=== PATIENT | female | born 1965 | race Caucasian/White ===

== ENCOUNTER 2016-11-15 08:02 | Day surgery (SDC) | payer MEDICAID ==
[2016-11-15] VITALS (9 sets, daily range): BP systolic 141–190; BP diastolic 69–88; PULSE 73–88; TEMP 97.3–98
[~2016-11-15] VITALS: Ht 161.9 cm; Wt 142.5 kg
[2016-11-15 08:58] LABS: HEMATOCRIT 40.9 % (37.0-47.0); HEMOGLOBIN 13.9 g/dl (12.5-16.0); MEAN CELL VOLUME 82 fl (80.0-100.0); MEAN CORPUSCULAR HEMOGLOBIN 28 pg (27.0-31.0); MEAN CORPUSCULAR HGB CONC 34 g/dl (33.0-37.0); MEAN PLATELET VOLUME 9.8 fl (7.4-10.4); PLATELET COUNT 214 K/mm3 (130-400); RED BLOOD COUNT 4.99 M/mm3 (4.10-5.30); REDCELL DISTRIBUTION WIDTH-CV 14.2 % (11.5-14.5); WHITE BLOOD COUNT 10.9 K/mm3 (4.8-10.8)
[2016-11-15 09:13] LABS: CALCIUM 9.5 mg/dL (8.4-10.2); CREATININE, serum 0.65 mg/dL (0.52-1.25)
[2016-11-15 09:22] LABS: PROTHROMBIN TIME 10.6 SECONDS (9.7-12.8)
[2016-11-15] MEDS ORDERED: CELEBREX 200MG200 MG PO (09:27)
[2016-11-15] MEDS ORDERED: FIORICET 325 MG1 TA1 PO (09:28)
[2016-11-15] MEDS ORDERED: MYRBETR50MG PO (09:29)
[2016-11-15] MEDS ORDERED: GLUCOPHAGE XR500 M1 PO (09:30)
[2016-11-15] MEDS ORDERED: LASIX 20MG TABL20 MG PO (09:30)
[2016-11-15] MEDS ORDERED: SINGULAIR 110 MG/TAB PO (09:31)
[2016-11-15] MEDS ORDERED: CRESTOR20 MG PO (09:31)
[2016-11-15] MEDS ORDERED: NIASPAN 500MG500 MG PO (09:32)
[2016-11-15] MEDS ORDERED: K-TAB10 PO (09:32)
[2016-11-15] MEDS ORDERED: COZAAR 50MG50 MG/TAB PO (09:33)
[2016-11-15] MEDS ORDERED: ASPIRIN E.C. 8181 MG PO (09:33)
[2016-11-15] MEDS ORDERED: PRILOSEC 20MG20 MG PO (09:34)
[2016-11-15] MEDS ORDERED: VICTOZA6 MG/ML SQ (09:35)
[2016-11-15] MEDS ORDERED: CALCIUM 600-D 61 TAB PO (09:35)
[2016-11-15] MEDS ORDERED: NOVOLOG FLEX100 U/ML SQ (09:36)
[2016-11-15] MEDS ORDERED: LANTUS SOLOS100 U/ML SQ (09:36)
[2016-11-15] MEDS ORDERED: RT ADVAIR 528 DISKUS IH (09:37)
[2016-11-15] MEDS ORDERED: SPIRIVA RE2.5 MCG/Ac IH (09:38)
[2016-11-15] MEDS ORDERED: COMBIRESP IH (09:38)
[2016-11-15] MEDS ORDERED: LOPRESSOR 225 MG/TAB PO (09:39)
[2016-11-15] MEDS ORDERED: NITROSTAT0.4 MG/TAB SL (09:39)
== END 2016-11-15 13:53 | disposition home or self-care (01) ==
LOC: COL.RAD 08:02
PROVIDERS: Internal Medicine Cardiovascular Disease
DX: R07.9 Chest pain, unspecified (principal); R94.39 Abnormal result of other cardiovascular function study; E11.9 Type 2 diabetes mellitus without complications; E78.00 Pure hypercholesterolemia, unspecified; E78.5 Hyperlipidemia, unspecified; E66.9 Obesity, unspecified
CPT/HCPCS: C1769; C1894; J1644; J2250; J3010; Q9967